=== PATIENT | female | born 1970 | race Caucasian/White ===

== ENCOUNTER 2018-09-20 14:59 | Emergency (ER) | payer OTHER, MEDICARE ==
[~2018-09-20] VITALS: Ht 152.4 cm; Wt 86.2 kg
[~2018-09-20 14:59] MED LIST: AMITRIPTYLINE H75 M2; HYDROXYCHLOROQ200 M1; LYRICA; ULTRAM 50MG TAB50 MG
[2018-09-20] MEDS ORDERED: SKELAXIN 800 M800 M1 PO (15:13)
[2018-09-20] MEDS ORDERED: OXYBUTYNIN 5 MG5 M2 PO (15:13)
[2018-09-20] MEDS ORDERED: CYMBALTA60 MG PO (15:13)
[2018-09-20] MEDS ORDERED: TOPAMAX50 MG PO (15:13)
[2018-09-20] MEDS ORDERED: LYRICA 50 MG50 MG PO (15:13)
[2018-09-20] MEDS ORDERED: LIORESAL 10 MG10 MG PO (15:13)
[2018-09-20 15:33] LABS: ABSOLUTE EOSINOPHILS 0.3 thou/uL (0.0-0.7); ABSOLUTE LYMPHOCYTES 0.9 thou/uL (0.8-5.3); ABSOLUTE MONOCYTES 0.8 thou/uL (0.0-1.2); ABSOLUTE NEUTROPHILS 5.8 thou/uL (1.6-8.1); BASOPHILS 0.4 %; EOSINOPHILS 3.6 %; HEMOGLOBIN 15.5 gm/dL (12.0-15.0); LYMPHOCYTES 11.9 %; MCH 30.6 pg (26.0-34.0); MCHC 33.8 g/dL (28.0-37.0); MCV 90.6 fL (80.0-100.0); MONOCYTES 9.9 %; MPV 9.9 fl. (7.2-11.1); NUCLEATED RBCS 0 /100WBC; PLATELET COUNT* 236 thou/uL (150-400); POLYS 74.2 %; RBC 5.08 mil/uL (4.20-5.00); RDW-CV 13.7 % (10.5-14.5); WBC 7.8 thou/uL (4.0-11.0)
[2018-09-20 15:42] LABS: ANION GAP 10 mmol/L (7-16); BUN 15 mg/dL (7-18); CALCIUM 8.3 mg/dL (8.5-10.1); CHLORIDE 107 mmol/L (98-107); CO2 24 mmol/L (21-32); CREATININE 0.9 mg/dL (0.6-1.3); GLUCOSE 51 mg/dL (70-99); SODIUM 141 mmol/L (136-145)
[2018-09-20 15:48] LABS: ALBUMIN 3.8 g/dL (3.4-5.0); ALKALINE PHOSPHATASE 67 U/L (46-116); LIPASE 169 U/L (73-393); SGOT 25 U/L (15-37); SGPT 37 U/L (30-65); TOTAL BILIRUBIN 0.4 mg/dL (<0.1-1.0); TOTAL PROTEIN 7.2 g/dL (6.4-8.2); TROPONIN-I LEVEL <0.06 ng/mL (<0.06)
[2018-09-20] MEDS ORDERED: NORCO 5-325 TA1 EACH PO (16:37)
[2018-09-20 16:50] LABS: URINE BILIRUBIN NEGATIVE (Negative); URINE BLOOD NEGATIVE (Negative); URINE CLARITY CLEAR; URINE COLOR STRAW; URINE GLUCOSE-RANDOM NEGATIVE (Negative); URINE KETONES NEGATIVE (Negative); URINE LEUKOCYTES-REFLEX NEGATIVE (Negative); URINE NITRITE-REFLEX NEGATIVE (Negative); URINE PROTEIN NEGATIVE (Negative); URINE SPECIFIC GRAVITY <= 1.005 (1.005-1.030); URINE UROBILINOGEN 0.2 E.U./dl (0.2-1.0)
[2018-09-20 16:52] VITALS: BP 117/73
== END 2018-09-20 17:10 | disposition home or self-care (01) ==
LOC: M.ERS 14:59
PROVIDERS: Physician Assistant
DX: K80.80 Other cholelithiasis without obstruction (principal); R19.7 Diarrhea, unspecified; M32.9 Systemic lupus erythematosus, unspecified; Z88.0 Allergy status to penicillin; Z90.710 Acquired absence of both cervix and uterus